=== PATIENT | female | born 1940 | race Two or more races ===

== ENCOUNTER 2025-02-05 19:16 | Inpatient (IN) | payer MEDICARE, OTHER ==
[~2025-02-05] VITALS: Ht 157.5 cm; Wt 63.5 kg
[2025-02-05] MEDS ORDERED: CYAN250010 PO (19:42)
[2025-02-05] MEDS ORDERED: DICL100G31 TP (19:42)
[2025-02-05] MEDS ORDERED: CHOL10005 PO (19:42)
[2025-02-05] MEDS ORDERED: BREX1TAB PO (19:42)
[2025-02-05] MEDS ORDERED: NICO1PAT44 TD (19:42)
[2025-02-05] MEDS ORDERED: ATOR40TA PO (19:42)
[2025-02-05] MEDS ORDERED: DONE5TAB7 PO (19:42)
[2025-02-05] MEDS ORDERED: DULO60CA45 PO (19:42)
[2025-02-05] MEDS ORDERED: QUET25TA PO (19:42)
[2025-02-05] MEDS ORDERED: LOSA100T3 PO (19:42)
[2025-02-05] MEDS ORDERED: BISA10SU61 RC (19:42)
[2025-02-05] MEDS ORDERED: NA P133E RC (19:42)
[2025-02-05] MEDS ORDERED: BREX0.5T PO (19:42)
[2025-02-05] MEDS ORDERED: LEVO137T24 PO (19:42)
[2025-02-05] MEDS ORDERED: DIVA250T PO (19:42)
[2025-02-05] MEDS ORDERED: LABE100T5 PO (19:42)
[2025-02-05] MEDS ORDERED: INSU100V7 SQ (19:42)
[2025-02-05] MEDS ORDERED: BUSP15TA3 PO (19:42)
[2025-02-05] MEDS ORDERED: MELA5TAB20 PO (19:42)
[2025-02-05] MEDS ORDERED: SIMV10TA2 PO (19:42)
[2025-02-05] MEDS ORDERED: MAGN400C PO (19:42)
[2025-02-05] MEDS ORDERED: MAGN400O6 PO (19:42)
[2025-02-05 20:11] LABS: BASOPHILS % (AUTO) 0.6 % (0.0-2.0); EOSINOPHILS # (AUTO) 0.2 K/uL (0.0-0.7); EOSINOPHILS % (AUTO) 2.7 % (0.0-7.0); HEMATOCRIT 31.4 % (31.2-41.9); HEMOGLOBIN 10.2 g/dL (10.9-14.3); LYMPHOCYTES # (AUTO) 2.5 K/uL (0.8-4.8); LYMPHOCYTES % (AUTO) 30.4 % (20.5-51.5); MEAN CORPUSCULAR HEMOGLOBIN 28.5 uug (24.7-32.8); MEAN CORPUSCULAR HGB CONC 33 g/dL (32.3-35.6); MEAN CORPUSCULAR VOLUME 87.3 fL (75.5-95.3); MONOCYTES # (AUTO) 0.8 K/uL (0.1-1.30); MONOCYTES % (AUTO) 10.2 % (0.0-11.0); NEUTROPHILS # (AUTO) 4.5 K/uL (1.8-8.9); NEUTROPHILS % (AUTO) 56.1 % (38.5-71.5); PLATELET COUNT (AUTO) 329 K/uL (179-408); RED CELL DISTRIBUTION WIDTH 14.6 % (12.3-17.7); WHITE BLOOD COUNT (AUTO) 8.1 K/uL (3.8-11.8)
[2025-02-05 20:15] LABS: DIFFERENTIAL COMMENT 1
[2025-02-05 20:19] LABS: CALCIUM 8.8 mg/dL (8.5-10.1); CARBON DIOXIDE 29 mmol/L (21-32); CHLORIDE 101 mmol/L (98-107); GLUCOSE 126 mg/dL (74-106); POTASSIUM 4.7 mmol/L (3.5-5.1); SODIUM SERUM 138 mmol/L (136-145); UREA NITROGEN, BLOOD 12 mg/dL (7-18)
[2025-02-05 20:21] LABS: AMMONIA 27 umol/L (11-32)
[2025-02-05 20:25] LABS: ALANINE AMINOTRANSFERASE 27 U/L (14-59); ALBUMIN 3.3 g/dL (3.4-5.0); ALKALINE PHOSPHATASE 62 U/L (50-136); ASPARTATE AMINOTRANSFERASE 15 U/L (15-37); BILIRUBIN,TOTAL 0.2 mg/dL (0.2-1.0); TOTAL PROTEIN, SERUM 6.7 g/dL (6.4-8.2)
[2025-02-05 20:30] LABS: ACETAMINOPHEN < 2.0 ug/mL (10-30)
[2025-02-05 20:42] LABS: ETHANOL < 3 MG/DL (0-10)
[2025-02-06] MEDS: CLONIDINE HCL 0.1 MG TABLET PO ONE (02:43)
[2025-02-06] MEDS ORDERED: MAGNESIUM HYDROXIDE 30 ML LIQUID UDC PO PRN ×2 (05:45→10:15)
[2025-02-06 06:06] VITALS: BP 144/90; TEMP 98.2; O2SAT 97
[2025-02-06 08:18] VITALS: BP 147/66; TEMP 98.5; O2SAT 97
[2025-02-06] MEDS: NICOTINE 14 MG/24HR PATCH TD SCH (09:00)
[2025-02-06] MEDS ORDERED: DEXTROSE 50% 50 ML DISP.SYRIN IV PRN (11:15)
[2025-02-06] MEDS: NICOTINE 7 MG/24HR PATCH TD SCH (12:00)
[2025-02-06] MEDS: BLOOD SUGAR DIAGNOSTIC 1 EACH STRIP VI SCH (12:14)
[2025-02-06] MEDS: LOSARTAN POTASSIUM 50 MG TABLET PO SCH (12:15)
[2025-02-06] MEDS: CYANOCOBALAMIN 1,000 MCG TABLET PO SCH (12:15)
[2025-02-06] MEDS: INSULIN REGULAR, HUMAN 1000 UNIT/10 ML VIAL SQ PRN (12:18)
[2025-02-06] MEDS: LORAZEPAM 1 MG TABLET PO PRN (14:51)
[2025-02-06] MEDS: OLANZAPINE 10 MG VIAL IM ONE (16:19)
[2025-02-06 16:52] VITALS: BP 121/68; TEMP 98.3; O2SAT 98
[2025-02-06] MEDS: LABETALOL HCL 100 MG TABLET PO SCH (16:57)
[2025-02-06] MEDS: LEVOTHYROXINE SODIUM 137 MCG TABLET PO SCH (16:58)
[2025-02-06] MEDS: risperiDONE 1 MG TABLET PO SCH (18:25)
[2025-02-06 20:52] VITALS: BP 119/63; TEMP 98.4; O2SAT 98
[2025-02-06] MEDS: DONEPEZIL 5 MG TABLET PO SCH (21:00)
[2025-02-06] MEDS: INSULIN GLARGINE,HUM 300 UNITS/3 ML CARTRIDGE SQ SCH (21:00)
[2025-02-06] MEDS: ATORVASTATIN 40 MG TABLET PO SCH (21:00)
[2025-02-07 08:18] VITALS: BP 131/81; TEMP 98; O2SAT 98
[2025-02-07] MEDS: CHOLECALCIFEROL 1,000 UNIT TABLET PO SCH (08:51)
[2025-02-07] MEDS: MAGNESIUM OXIDE 400 MG TABLET PO SCH (08:51)
[2025-02-07] MEDS ORDERED: Medication Not On Formulary EA (Cholecalciferol (Vitamin D3) (Vitamin D3) 1 CAP) PO SCH (09:00)
[2025-02-07] MEDS ORDERED: NICOTINE 14 MG/24HR PATCH TD SCH (09:00)
[2025-02-07] MEDS ORDERED: Medication Not On Formulary EA (Cyanocobalamin (Vitamin B-12) (Vitamin B12) 1,000 MCG) PO SCH (09:00)
[2025-02-07 16:28] VITALS: BP 144/71; TEMP 98; O2SAT 97
[2025-02-07] MEDS: ACETAMINOPHEN 325 MG TABLET PO PRN (17:56)
[2025-02-07 20:00] VITALS: BP 144/74; TEMP 97.7; O2SAT 97
[2025-02-07] MEDS: LORAZEPAM 1 MG TABLET PO PRN (20:20)
[2025-02-07] MEDS: REMEDY ESSENTIAL ZINC PASTE 113 GM TOP PRN (20:22)
[2025-02-07] MEDS ORDERED: SIMVASTATIN 10 MG TABLET PO SCH (21:00)
[2025-02-07] MEDS: TEMAZEPAM 15 MG CAPSULE PO PRN (22:21)
[2025-02-08 08:36] VITALS: BP 126/84; TEMP 98; O2SAT 96
[2025-02-08 15:48] VITALS: BP 139/65; TEMP 98; O2SAT 96
[2025-02-08 21:01] VITALS: BP 135/66; TEMP 97.7; O2SAT 97
[2025-02-09] MEDS: risperiDONE 0.5 MG TABLET PO SCH (08:15)
[2025-02-09 08:23] VITALS: BP 154/44; TEMP 98; O2SAT 97
[2025-02-09 16:24] VITALS: BP 149/88; TEMP 98.5; O2SAT 100
[2025-02-09] MEDS: GLUCERNA SHAKE 237 ML CAN PO SCH (16:25)
[2025-02-09 19:37] VITALS: BP 122/72; TEMP 98.2; O2SAT 100
[2025-02-10 08:20] VITALS: BP 144/91; TEMP 97.7; O2SAT 95
[2025-02-10 16:18] VITALS: BP 90/44; TEMP 98.3; O2SAT 96
[2025-02-10 16:36] VITALS: BP 90/44; TEMP 98.3; O2SAT 95
[2025-02-10 20:00] VITALS: BP 132/72; TEMP 98; O2SAT 97
[2025-02-11 08:41] VITALS: BP 142/44; TEMP 98.3; O2SAT 95
[2025-02-11 16:14] VITALS: BP 125/59; TEMP 98; O2SAT 97
[2025-02-11 20:00] VITALS: BP 136/71; TEMP 98.5; O2SAT 97
[2025-02-12 08:14] VITALS: BP 153/53; TEMP 98; O2SAT 96
[2025-02-12 15:14] VITALS: BP 141/59; TEMP 98; O2SAT 96
[2025-02-12 20:00] VITALS: BP 138/60; TEMP 97.5; O2SAT 97
[2025-02-13 07:43] VITALS: BP 160/79; TEMP 98; O2SAT 96
[2025-02-13] MEDS: risperiDONE 1 MG TABLET PO SCH (08:29)
[2025-02-13] MEDS ORDERED: risperiDONE 0.5 MG TABLET PO SCH (09:00)
[2025-02-13 15:47] VITALS: BP 135/56; TEMP 98; O2SAT 96
[2025-02-13 19:38] VITALS: BP 133/60; TEMP 98.2; O2SAT 95
[2025-02-14 08:40] VITALS: BP 148/54; TEMP 98.2; O2SAT 96
[2025-02-14 15:13] VITALS: BP 139/49; TEMP 98; O2SAT 96
[2025-02-14] MEDS: MAG HYDROX/AL HYDROX/SIMETH 30 ML LIQUID UDC PO PRN (15:49)
[2025-02-14 19:41] VITALS: BP 128/59; TEMP 98; O2SAT 98
[2025-02-15 08:57] VITALS: BP 142/71; TEMP 98; O2SAT 95
[2025-02-15 16:23] VITALS: BP 118/61; TEMP 98.4; O2SAT 99
[2025-02-16 08:20] VITALS: BP 136/71; TEMP 98.5; O2SAT 96
[2025-02-16 17:12] VITALS: BP 110/58; TEMP 98; O2SAT 99
== END 2025-02-16 17:14 | DRG 885 ==
LOC: ER 19:28 → GPS 02-06 04:35
PROVIDERS: ADMIT Psychiatry & Neurology Psychiatry; ATTEND Nurse Practitioner Acute Care
DX: F20.0 Paranoid schizophrenia (principal); F03.911 Unspecified dementia, unspecified severity, with agitation; F17.210 Nicotine dependence, cigarettes, uncomplicated; E03.9 Hypothyroidism, unspecified; E78.5 Hyperlipidemia, unspecified; Z79.890 Hormone replacement therapy; Z79.899 Other long term (current) drug therapy; F31.9 Bipolar disorder, unspecified; E11.9 Type 2 diabetes mellitus without complications; I10 Essential (primary) hypertension; Z71.6 Tobacco abuse counseling; M62.81 Muscle weakness (generalized); Z88.5 Allergy status to narcotic agent; Z79.4 Long term (current) use of insulin
CPT/HCPCS: 36415; 85025; A4606; A4663; A9150; G0480; J1815; J2358